=== PATIENT | female | born 1970 | race Caucasian/White ===

== ENCOUNTER 2018-05-23 02:35 | Emergency (ER) | payer SELFPAY ==
[~2018-05-23] VITALS: Ht 165.1 cm; Wt 99.8 kg
[2018-05-23 02:45] VITALS: BP 143/86
--- NOTE | 2018-05-23 02:52 | ED DYSPNEA/ASTHMA COMPLAINT ---
History of Present Illness General Chief Complaint: Wheezing/Asthma Stated Complaint: PT C/O DIFF BREATHING 97% AT [facility] Source: patient Exam Limitations: no limitations Vital Signs & Intake/Output Vital Signs & Intake/Output Vital Signs Date Time Temp Pulse Resp B/P B/P Pulse O2 O2 Flow FiO2 Mean Ox Delivery Rate 05/23 0249 96 Room Air 05/23 0245 99.1 89 20 143/86 96 Room Air Allergies Coded Allergies: morphine (Mild, ITCHING 05/23/18) Reconcile Medications Albuterol Sulfate (Ventolin Hfa) 90 MCG HFA.AER.AD 2 PUF INH Q4-6 PRN PRN asthma Prednisone 50 MG TABLET 1 TAB PO DAILY asthma exacerbation Triage Note: PT HERE WITH C/O "INTERMITTENT ASTHMA DUE TO CHANGE OF WEATHER". PT REPORTS RUNNING OUT OF INHALER. Triage Nurses Notes Reviewed? yes Onset: Gradual Duration: day(s): Timing: recent history Severity: mild, moderate Activities at Onset: "I get this when the weather changes" Prior Episodes/Possible Cause: occasional episodes Modifying Factors: Improves With: rest. Associated Symptoms: cough, wheezing HPI: 48 yo woman in prior good health presents with coughing and wheezing. "I get this way when the weather changes.... It's been so humid... It was hot and then it was cold." She notes that she has had 5-6 days of cough with wheeze, no fever, phlegm, chest pain, lower extremity swelling. She is otherwise well. Past History Travel History Traveled to [place] past 21 day No Medical History Any Pertinent Medical History? see below for history Neurological: NONE EENT: NONE Cardiovascular: NONE Respiratory: asthma Gastrointestinal: NONE Hepatic: NONE Renal: NONE Musculoskeletal: NONE Psychiatric: NONE Endocrine: NONE Blood Disorders: NONE Cancer(s): NONE MIL[employer] W[employer]/Reproductive: NONE Surgical History Surgical History: none Psychosocial History What is your primary language Egyptian Tobacco Use: Never used ETOH Use: denies use Illicit Drug Use: denies illicit drug use Family History Hx Contributory? No Review of Systems Review of Systems Constitutional: Reports: no symptoms. EENTM: Reports: no symptoms. Respiratory: Reports: no symptoms. Cardiovascular: Reports: no symptoms. GI: Reports: no symptoms. Genitourinary: Reports: no symptoms. Musculoskeletal: Reports: no symptoms. Skin: Reports: no symptoms. Neurological/Psychological: Reports: no symptoms. Hematologic/Endocrine: Reports: no symptoms. Immunologic/Allergic: Reports: no symptoms. All Other Systems: Reviewed and Negative Physical Exam Physical Exam General Appearance: well developed/nourished, mild distress Head: atraumatic, normal appearance Eyes: Bilateral: normal appearance. Ears, Nose, Throat: normal pharynx, normal ENT inspection Neck: normal inspection, supple, full range of motion Respiratory: normal breath sounds, no respiratory distress, wheezing Cardiovascular: regular rate/rhythm Gastrointestinal: normal bowel sounds, soft, non-tender Extremities: normal inspection, normal capillary refill, normal range of motion, no edema Neurologic/Psych: no motor/sensory deficits, awake, alert, oriented x 3 Skin: intact, normal color, warm/dry Core Measures ACS in differential dx? No CVA/TIA Diagnosis No Sepsis Present: No Sepsis Focused Exam Completed? No Progress Differential Diagnosis: asthma, bronchitis Plan of Care: Current Medications Sig/Neno Start time Last Medication Dose Stop Time Status Admin Prednisone 60 MG ONCE ONE 05/23 0315 UNVr 05/23 031 Albuterol Sulfate 3 ML ONCE ONE 05/23 0300 UNVr (Proventil) 05/23 030 Ipratropium [place] 2.5 ML ONCE ONE 05/23 030 UNVr (Atrovent) 05/23 030 Initial ED EKG: none Departure Departure Disposition: HOME OR SELF CARE Condition: Stable Clinical Impression Primary Impression: Asthma exacerbation Referrals: Austin Johnson MD (PCP/Family) Departure Forms: Customer Survey General Discharge Information Prescriptions: Current Visit Scripts Prednisone 1 TAB PO DAILY #4 TAB Albuterol Sulfate (Ventolin Hfa) 2 PUF INH Q4-6 PRN PRN asthma #1 INHAL Ref 2 Comments pt given duo neb and prednisone 50mg in the ed. 02 sat 97%... safe for discharge with close follow up advised. Critical Care Note Critical Care Note Critical Care Time: non-applicable
[2018-05-23] MEDS ORDERED: PREDNISONE50 M1 PO (03:10)
[2018-05-23] MEDS ORDERED: VENTOLIN HFA18 GM INH (03:10)
== END 2018-05-23 03:42 ==
LOC: ERH 02:35
DX: J45.901 Unspecified asthma with (acute) exacerbation (principal)
CPT/HCPCS: 1263